=== PATIENT | female | born 1965 ===

== ENCOUNTER 2017-11-30 11:13 | Outpatient (CLI) | payer OTHER ==
[~2017-11-30 11:13] MED LIST: CIPRODEX OTIC7.5 ML OTIC
== END 2017-11-30 11:22 | disposition home or self-care (01) ==
LOC: SONOGRAMA 11:13
DX: E04.2 Nontoxic multinodular goiter (principal)

== ENCOUNTER → 2023-05-18 | Day surgery (SDC) | payer OTHER ==
[2023-05-07 08:57] LABS: PH,URINE 6.5 (5.0-8.0); URINE APPEARANCE Clear; URINE BILIRRUBIN Negative (NEGATIVE); URINE BLOOD Negative; URINE COLOR Yellow; URINE LEUKOCYTE Negative; URINE NITRATE Negative; URINE PROTEIN Negative (NEGATIVE); URINE UROBILINOGEN 0.2 E.U./dl
[2023-05-07 08:59] LABS: HEMATOCRIT 41.1 % (36.0-45.00); HEMOGLOBIN 14.2 g/dL (12.0-15.00); MEAN CELL VOLUME 90.6 fL (80.00-100.00); MEAN CORPUSCULAR HEMOGLOBIN 31.4 pg (27.00-32.0); MEAN CORPUSCULAR HGB CONC 34.7 g/dl (32.0-36.0); PLATELET COUNT 198 K/uL (150-450); RED BLOOD COUNT 4.54 M/uL (4.00-6.00); RED CELL DISTRIBUTION WIDTH 13.1 % (11.5-14.5)
[2023-05-07 09:00] LABS: URINE BACTERIA 6.2 uL (0.0-1933); URINE EPITHELIAL CELLS 5.2 uL (0.0-38.8); URINE RBC 6.4 uL (0.0-20.8); URINE WBC 4.3 uL (0.0-23.2)
[2023-05-07 09:02] LABS: URINE GLUCOSE >=1000 MG/DL (NEGATIVE)
[2023-05-07 09:26] LABS: ALBUMIN 3.9 gm/dL (3.4-5.0); BILIRUBIN TOTAL 0.29 mg/dL (0.3-1.2); CALCIUM 9.4 mg/dL (8.5-10.1); CREATININE SERUM 0.63 mg/dL (0.55-1.02); GFR 98.11; GLOBULINA 3.3 G/DL (2.4-3.5); POTASSIUM 3.88 mEq/L (3.5-5.1); TOTAL PROTEIN 7.2 gm/dL (6.4-8.2)
[2023-05-07 09:37] LABS: INR 0.98; PARTIAL THROMBOPLASTIN TIME 26.8 SECONDS (22.0-34.0); PROTHROMBIN TIME 10.3 SECONDS (9.0-11.5)
[~2023-05-18] MED LIST changes: +BUPIVACAINE HCL 30 ML VIAL IJ ONE; +BUPIVACAINE HCL/PF 0.5% 30ML ML ONE; +CEFAZOLIN SODIUM 1,000 MG VIAL IV ONE; +CEFAZOLIN SODIUM 1,000 MG VIAL ONE; +XIGDUO XR 5 MG1 EACH PO
== END | disposition home or self-care (01) ==
LOC: ADM 05-07 08:00 → CIR.AMB 05:00
PROVIDERS: ATTEND Orthopaedic Surgery Hand Surgery
DX: M65.331 Trigger finger, right middle finger (principal)